=== PATIENT | male | born 1990 | race Two or more races ===

== ENCOUNTER 2021-01-16 21:48 | Emergency (ER) | payer OTHER ==
[2021-01-16 21:56] VITALS: BP 130/66
[2021-01-16] MEDS ORDERED: TRIAMCINOLONE 40 MG/ML VIAL IM STA (22:30)
--- NOTE | 2021-01-16 23:03 | ED Physician Documentation ---
History of Present Illness - Stated complaint Stated Complaint: RT HAND POSSIBLE RASH - Chief complaint Chief Complaint: Ext Problem - History obtained from History obtained from: Patient - Additonal information Additional information: RightPatient comes emergency department chief complaint of rash on hand for 4 days, now spreading to left. He states that he is not really sure what started it, but it has progressed over the time he has had the rash. He states it is very itchy and started as tiny blisterlike bumps. He states more of them developed and then he developed red patches on his hand. Now, he states he has noticed some of the same, tiny, blister like lesions on the dorsum of his left hand. He is also noticed a little bit of a rash on his right wrist. No fevers or chills. No rash anywhere else. He states he feels a little bit of itching on his right forearm. The only exposure he can think of is that he has been doing sitz baths for a hemorrhoid that he has and has had to do these a few times a day. He was using his right hand to plug the bathtub drain, as he does not have a drain plug. He states that after the rash began to develop, he stopped using his hand to plug the drain and started using a washcloth instead. He states his primary doctor put him on a topical medication, the name of which she is not exactly sure, and told him that he may have a zoster outbreak. The patient is not immunocompromised in any way that he knows of. The only other exposure the patient can think of is that he cleaned out his humidifier the day before the rash started and saw a bunch of yellowish, mold like the material in there, and is not sure if this has anything to do with it. He has no other allergies that he knows of. No other complaints at this time. He does note that he has a colonoscopy coming up in about 5 days for his hemorrhoid. The only other medication he has been on is a hemorrhoid cream, though he is not using this anymore. Review of Systems Ten Systems: 10 systems reviewed and negative Constitutional: reports: Reviewed and negative Eyes: reports: Reviewed and negative Ears: reports: Reviewed and negative Nose: reports: Reviewed and negative Throat: reports: Reviewed and negative Cardiac: reports: Reviewed and negative Respiratory: reports: Reviewed and negative GI: reports: Reviewed and negative : reports: Reviewed and negative Skin: reports: Rash Musculoskeletal: reports: Reviewed and negative Neurologic: reports: Reviewed and negative Psychiatric: reports: Reviewed and negative Endocrine: reports: Reviewed and negative Immunocompromised: reports: Reviewed and negative PD PAST MEDICAL HISTORY - Past Medical History Past Medical History: No - Past Surgical History Past Surgical History: No - Present Medications Home Medications: Ambulatory Orders Medication Instructions Recorded Confirmed predniSONE [Deltasone] 60 mg PO DAILY 3 Days #9 tablet 01/16/21 - Allergies Allergies/Adverse Reactions: Allergies Allergy/AdvReac Type Severity Reaction Status Date / Time No Known Drug Allergies Allergy Verified 01/16/21 21:52 - Social History Does the pt smoke?: No Smoking Status: Never smoker Does the pt drink ETOH?: No Does the pt have substance abuse?: No - Immunizations Immunizations are current?: Yes - POLST Patient has POLST: No PD ED PE NORMAL - Vitals Vital signs reviewed: Yes - General General: Alert and oriented X 3, No acute distress, Well developed/nourished - HEENT HEENT: Atraumatic, PERRL, EOMI, Moist mucous membranes - Neck Neck: Supple, no meningeal sign - Cardiac Cardiac: Strong equal pulses - Respiratory Respiratory: No respiratory distress - Derm Derm: Normal color, Warm and dry, Other (Scattered, tiny vesicular lesions over dorsum of right hand, intermingled with urticarial appearing erythematous patches. Occasional lesion noted on both aspects of right wrist. Generalized, mild edema of palm and fingers on right. Scat vesicular lesions on left hand dorsum without urticaria) - Extremities Extremities: No deformity - Neuro Neuro: Alert and oriented X 3 - Psych Psych: Normal mood, Normal affect Results - Vitals Vitals: Vital Signs - 24 hr 01/16/21 01/16/21 21:53 23:09 Temperature 36.5 C 36.5 C Heart Rate 88 88 Respiratory 16 16 Rate Blood Pressure 130/66 130/66 O2 Saturation 98 98 Oxygen O2 Source Room air PD MEDICAL DECISION MAKING - ED course Complexity details: considered differential, d/w patient ED course: I discussed with the patient that I am not really sure what has caused his rash, but I suspect dyshidrotic eczema/dermatitis. I have given him a shot of Kenalog here in the emergency department and started him on a course of prednisone. He has Benadryl at home, but has not taken it yet. We have discussed using this as well. Overall, the rash appears fairly benign and I believe it will resolve on its own. However, the patient is advised that if the rash persists or next week, he should talk to his primary care physician about getting a referral for dermatology follow-up. Departure - Departure Disposition: Home, Self Care Clinical Impression: Dyshidrotic dermatitis Condition: Stable Instructions: ED Allergic Reaction Local Other, ED Dermatitis Atopic Eczema Prescriptions: predniSONE [Deltasone] 60 mg PO DAILY 3 Days #9 tablet Comments: It is not entirely clear what is causing your rash, but it looks most like dyshidrotic eczema/dermatitis. Sometimes this can be triggered by increased or excessive exposure to water. This rash is not indicative of a serious condition, and is expected to get better on its own. Steroids are the most helpful, although Benadryl may also help with the itching. The rash can last for up to a couple of weeks. You may follow-up with your doctor and request a referral to dermatology to address further concerns. Please take the steroid each day, as prescribed, to help with the symptoms. If there is anything you suspect is irritating your skin, please avoid exposure to this. Discharge Date/Time: 01/16/21 23:13
== END 2021-01-16 23:13 | disposition home or self-care (01) ==
LOC: ED 21:48
DX: L30.8 Other specified dermatitis (principal)
CPT/HCPCS: 96372; 99283; 99284

== ENCOUNTER 2021-02-17 07:34 | Emergency (ER) | payer OTHER ==
[2021-02-17 07:46] VITALS: BP 129/70
--- NOTE | 2021-02-17 08:00 | ED Physician Documentation ---
PD HPI GI BLEED - Stated complaint Stated Complaint: MALE - Chief complaint Chief Complaint: General - History obtained from History obtained from: Patient - History of Present Illness Timing - details: Gradual onset, Still present Associated symptoms: BRBPR (after BMs.) Contributing factors: No: Sick contact, Bad food Worsened by: Other (noted some red blood with wiping after BMs. Today was noting some swelling near the rectum.) Similar symptoms before: Diagnosis (hemorrhoids, but has not had the tender swelling in perirectal area prior.) Recently seen: Clinic, Surgery (had colonoscopy recently for eval of blood with BMs. No findings other than hemorrhoids per pateint.) Review of Systems GI: denies: Abdominal Pain, Nausea, Vomiting, Constipation Skin: denies: Rash, Lesions PD PAST MEDICAL HISTORY - Past Medical History Cardiovascular: None Respiratory: None Endocrine/Autoimmune: None GI: Hemorrhoids - Past Surgical History Past Surgical History: No - Present Medications Home Medications: Ambulatory Orders Medication Instructions Recorded Confirmed Hydrocortisone [Anusol-Hc] 30 gm RC DAILY 5 Days #5 supp 02/17/21 Sulfamethox/Trimeth 800/160 1 each PO BID #10 tablet 02/17/21 [Bactrim Ds 800/160] Vits A and D/White Pet/Lanolin [A 1 applic TP BID 10 Days #42.5 gm 02/17/21 and D Ointment] - Allergies Allergies/Adverse Reactions: Allergies Allergy/AdvReac Type Severity Reaction Status Date / Time No Known Drug Allergies Allergy Verified 02/17/21 07:40 - Social History Does the pt smoke?: No Smoking Status: Never smoker Does the pt drink ETOH?: No Does the pt have substance abuse?: No - Immunizations Immunizations are current?: Yes - POLST Patient has POLST: No PD ED PE NORMAL - Vitals Vital signs reviewed: Yes - General General: Alert and oriented X 3, No acute distress, Well developed/nourished - Abdomen Abdomen: Soft, Non tender - Male Male : Deferred - Rectal Rectal: Other (some external hemorrhoids without active bleeding nor any signs of thrombosis at this time. There is some firmness and tenderness of tissue anterior to the rectum without fluctuance. Mild redness of the skin. ) - Back Back: No CVA TTP - Derm Derm: Normal color Results - Vitals Vitals: Vital Signs - 24 hr 02/17/21 07:42 Temperature 37.1 C Heart Rate 78 Respiratory 16 Rate Blood Pressure 129/70 O2 Saturation 98 Oxygen O2 Source Room air PD MEDICAL DECISION MAKING - ED course Complexity details: considered differential (hemorrhoids but no current thrombosis and not that enlarged. There is firmness and some red of tissue anterior to rectum, so concern for some early perirectal infection/cellulitis. Does not feel abscess. ), d/w patient Departure - Departure Disposition: 01 Home, Self Care Clinical Impression: Perirectal inflammation Hemorrhoids Qualifiers: Hemorrhoid type: unspecified Qualified Code(s): K64.9 - Unspecified hemorrhoids Condition: Stable Record reviewed to determine appropriate education?: Yes Instructions: ED Hemorrhoids Follow-Up: HALI GRIGGS MD [Primary Care Provider] - Prescriptions: Vits A and D/White Pet/Lanolin [A and D Ointment] 1 applic TP BID 10 Days #42.5 gm Hydrocortisone [Anusol-Hc] 30 gm RC DAILY 5 Days #5 supp Sulfamethox/Trimeth 800/160 [Bactrim Ds 800/160] 1 each PO BID #10 tablet Comments: With the bit of swelling and tenderness in the perirectal area, I am thinking there may be a developing infection under the skin related to the hemorrhoid. We can treat this with an antibiotic twice daily for 5 days to help on that portion of it. You can also use a steroid suppository daily for 3 to 5 days to help with some of the inflammation of the hemorrhoids 2. Otherwise continue with your sitz bath's and local ointment to the area to help keep. Protected on the skin and softened. This can be just [id number] ointments such as mineral oil or "butt paste" or similar. Follow-up with your nail welter for other ideas of longer treatment for the hemorrhoids. I transmitted your prescriptions to [facility] pharmacy in [place]. Forms: Activity restrictions Discharge Date/Time: 02/17/21 08:57
[2021-02-17] MEDS ORDERED: SULFAMETH/TRIMETH DS 800/160 MG TABLET PO STA (08:24)
== END 2021-02-17 08:57 | disposition home or self-care (01) ==
LOC: ED 07:34
DX: K62.89 Other specified diseases of anus and rectum (principal); K64.4 Residual hemorrhoidal skin tags
CPT/HCPCS: 99282; 99283; A9270

== ENCOUNTER 2021-09-23 13:38 | Emergency (ER) | payer OTHER ==
--- NOTE | 2021-09-23 14:06 | ED Physician Documentation ---
History of Present Illness - Stated complaint Stated Complaint: SOA/TIGHT CHEST/WEAKNESS - Chief complaint Chief Complaint: Resp - History obtained from History obtained from: Patient - History of Present Illness Timing: Last night - Additonal information Additional information: 31-year-old male with no reported past medical history presents by private vehicle for 1 day of body aches, nasal congestion, nonproductive cough. Reports feeling subjectively short of breath. Symptoms began last night after leaving his place of work. He states that he has been drinking a lot of orange juice, but no other medications taken at home for symptoms. States that [facility], and they recommended he be evaluated in the emergency department. Patient states that the last time he felt like this he had a viral illness. He is concerned that he might possibly have COVID-19 and is requesting a test for COVID-19. Denies fevers, chills, nausea, vomiting. States that his home oxygen levels were 97% on room air. Review of Systems Ten Systems: 10 systems reviewed and negative Constitutional: reports: Myalgias. denies: Fever, Chills Ears: denies: Ear pain, Drainage/discharge Nose: denies: Rhinorrhea / runny nose, Congestion Throat: denies: Dental pain / toothache, Oral lesions / sores Respiratory: reports: Cough. denies: Dyspnea GI: denies: Abdominal Pain, Nausea, Vomiting Skin: denies: Rash, Abrasion (s) PD PAST MEDICAL HISTORY - Past Medical History Cardiovascular: None Respiratory: None Endocrine/Autoimmune: None GI: Hemorrhoids - Past Surgical History Past Surgical History: No - Present Medications Home Medications: Ambulatory Orders Medication Instructions Recorded Confirmed Hydrocortisone [Anusol-Hc] 30 gm RC DAILY 5 Days #5 supp 02/17/21 Sulfamethox/Trimeth 800/160 1 each PO BID #10 tablet 02/17/21 [Bactrim Ds 800/160] Vits A and D/White Pet/Lanolin [A 1 applic TP BID 10 Days #42.5 gm 02/17/21 and D Ointment] - Allergies Allergies/Adverse Reactions: Allergies Allergy/AdvReac Type Severity Reaction Status Date / Time No Known Drug Allergies Allergy Verified 09/23/21 13:47 - Social History Does the pt smoke?: No Smoking Status: Never smoker Does the pt drink ETOH?: No Does the pt have substance abuse?: No - Immunizations Immunizations are current?: Yes - POLST Patient has POLST: No PD ED PE NORMAL - Vitals Vital signs reviewed: Yes - General General: Alert and oriented X 3, No acute distress, Well developed/nourished - HEENT HEENT: Atraumatic, EOMI, Ears normal, Moist mucous membranes, Pharynx benign - Neck Neck: Supple, no meningeal sign, No bony TTP, No adenopathy, Thyroid normal - Cardiac Cardiac: RRR, No murmur, No gallop, No rub - Respiratory Respiratory: No respiratory distress, Clear bilaterally - Abdomen Abdomen: Normal bowel sounds, Soft, Non tender, Non distended, No organomegaly - Derm Derm: Normal color, Warm and dry, No rash - Extremities Extremities: No deformity, No tenderness to palpate, Normal ROM s pain - Neuro Neuro: Alert and oriented X 3, 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 parapertussis DNA (PCR) NOT DETECTED Nasal Coronavir 229E PCR NOT DETECTED Nasal Coronavir HKU1 PCR NOT DETECTED Nasal Coronavir NL63 PCR NOT DETECTED Nasal Coronavir OC43 PCR NOT DETECTED Nasal Enterovir/Rhinovir PCR NOT DETECTED Nasal Influenza B PCR NOT DETECTED Nasal Influenza A PCR NOT DETECTED Nasal Parainfluen 1 PCR NOT DETECTED Nasal Parainfluen 2 PCR NOT DETECTED Nasal Parainfluen 3 PCR NOT DETECTED Nasal Parainfluen 4 PCR NOT DETECTED Nasal RSV (PCR) NOT DETECTED Nasal B.pertussis DNA PCR NOT DETECTED Nasal C.pneumoniae (PCR) NOT DETECTED Charanjit Human Metapneumo PCR NOT DETECTED Nasal M.pneumoniae (PCR) NOT DETECTED Nasal SARS-CoV-2 (PCR) DETECTED A PD MEDICAL DECISION MAKING - ED course ED course: Well-appearing male presenting for numerous symptoms that are consistent with viral illness. Patient reports shortness of breath however speaking in complete sentences without any dyspnea. Lungs are clear to auscultation bilaterally, saturations 100% on room air. Patient's viral panel is positive for COVID-19. Patient was informed of his results, counseled him to inform [facility] [employer] [facility] of [facility] positive status. Counseled plenty of fluid hydration, Tylenol and Motrin as needed for body aches or fever, and to get plenty of rest. Patient asked what medications he could take for cough, I recommended [id number] Robitussin or any other cough suppressant he prefers. Additionally patient can take cough drops as needed for throat discomfort. Departure - Departure Disposition: 01 Home, Self Care Clinical Impression: COVID-19 Condition: Good Instructions: ED Viral Syndrome Comments: Drink plenty of fluids. Take Tylenol and Motrin as needed for body aches or fever. Remain quarantine for at least 5 days or until the [employer] says you may return to work. Discharge Date/Time: 09/23/21 15:54
[2021-09-23 15:34] LABS: B. PARAPERTUSSIS- RESP PCR PAN NOT DETECTED; B. PERTUSSIS- RESP PCR PANEL NOT DETECTED; C. PNEUMONIAE- RESP PCR PANEL NOT DETECTED; CORONAVIRUS 229E-RESP PCR NOT DETECTED; CORONAVIRUS HKU1-RESP PCR NOT DETECTED; CORONAVIRUS NL63-RESP PCR NOT DETECTED; CORONAVIRUS OC43-RESP PCR NOT DETECTED; HUMAN METAPNEUMOVIRUS NOT DETECTED; INFLUENZA A- RESP PCR PANEL NOT DETECTED; INFLUENZA B - RESP PCR PANEL NOT DETECTED; M. PNEUMONIAE- RESP PCR PANEL NOT DETECTED; PARAINFLUENZA VIRUS 1 NOT DETECTED; PARAINFLUENZA VIRUS 2 NOT DETECTED; PARAINFLUENZA VIRUS 3 NOT DETECTED; PARAINFLUENZA VIRUS 4 NOT DETECTED; RHINOVIRUS/ENTEROVIRUS NOT DETECTED; RSV- RESP PCR PANEL NOT DETECTED
[2021-09-23 15:35] LABS: SARS-CoV-2 -RESP PCR PANEL DETECTED
[2021-09-23 15:52] VITALS: BP 105/52
== END 2021-09-23 15:54 | disposition home or self-care (01) ==
LOC: ED 13:38
DX: U07.1 COVID-19 (principal)
CPT/HCPCS: 87633; 93005; 99282; 99283